=== PATIENT | female | born 1955 | race Caucasian/White ===

== ENCOUNTER 2017-10-26 20:50 | Emergency (ER) | payer BC ==
[2017-10-26] MEDS ORDERED: Acetaminophen 500 MG TAB ONE (20:58)
[2017-10-26 22:15] LABS: #Eosinphils 0.1 thou/uL (0.0-0.7); #Lymphocytes 0.6 thou/uL (1.20-3.40); #Neutrophils 10.2 thou/uL (1.40-6.50); %Basophils 0.3 % (0.0-1.0); %Eosinophils 0.5 % (0.0-10.0); %Lymphocytes 4.8 % (21.0-51.0); %Monocytes 8.8 % (0.0-10.0); %Neutrophils 85.7 % (42.0-75.0); Hemoglobin 14.4 g/dL (12.0-16.0); Mean Corpuscular HGB CONC 33.6 g/dL (32.0-36.0); Mean Corpuscular Hemoglobin 32.6 pg (27.0-31.0); Mean Corpuscular Volume 96.9 fl (81.0-99.0); Mean Platelet Volume 6.4 fL (7.4-10.4); Platelet Count 333 thou/uL (130-400); RBC Distribution Width 11.6 % (11.5-14.5); Red Blood Cell (RBC) Count 4.42 mill/uL (4.20-5.40); White Blood Cell (WBC) Count 11.9 thou/uL (4.8-10.8)
--- NOTE | 2017-10-26 22:29 | RAD ---
PA AND LATERAL OF THE CHEST: INDICATIONS: Flu symptoms with cough. COMPARISON: Prior exam dated 07/28/2009. IMPRESSION: No focal consolidation. COMMENTS: No air space consolidation or pleural effusion is evident. The cardiomediastinal silhouette is withi n normal limits. No acute osseous abnormality is evident. POS: MARIO
[2017-10-26 22:52] LABS: ALT (SGPT) 16 U/L (8-55); AST (SGOT) 18 U/L (5-34); Albumin 4.6 g/dL (3.4-4.8); Alkaline Phosphatase 78 U/L (40-150); Anion Gap 14 mmol/L (10-20); BUN (Urea Nitrogen) 7 mg/dL (9.8-20.1); Bilirubin, Total 0.6 mg/dL (0.2-1.2); Calc. Creatinine Clearance 0 mL/min (70-130); Calcium 9.8 mg/dL (7.8-10.44); Carbon Dioxide 23 mmol/L (23-31); Chloride 99 mmol/L (98-107); Estimated GFR-MDRD 73; Globulin 2.8 g/dL (2.4-3.5); Glucose 120 mg/dL (80-115); Potassium 3.8 mmol/L (3.5-5.1); Protein, Total 7.4 g/dL (6.0-8.3); Sodium 132 mmol/L (136-145)
[2017-10-26] MEDS ORDERED: predniSONE 20 MG TAB ONE (23:03)
[2017-10-26] MEDS ORDERED: Albuterol Sulfate 1.25 MG/3 ML NEB ONE (23:52)
== END 2017-10-27 00:32 | disposition home or self-care (01) ==
LOC: ERS 20:50
DX: J40 Bronchitis, not specified as acute or chronic (principal); I10 Essential (primary) hypertension; J44.9 Chronic obstructive pulmonary disease, unspecified; F41.9 Anxiety disorder, unspecified; F32.9 Major depressive disorder, single episode, unspecified; F17.220 Nicotine dependence, chewing tobacco, uncomplicated; I49.9 Cardiac arrhythmia, unspecified
CPT/HCPCS: 36415; 71020; 80053; 83605; 85025; 87040; 94640; J7506; J7620

== ENCOUNTER 2017-10-29 09:54 | Emergency (ER) | payer BC ==
--- NOTE | 2017-10-29 10:58 | RAD ---
TWO VIEW CHEST: Comparison: 10-26-17 Clinical history: Fever. FINDINGS: Lungs are hyperinflated. There is mild hazy density at each lung base. Cardiac silhouette is at the u pper limits of normal in size. No significant vascular congestion. There is vascular calcification. IMPRESSION: 1. Mild hazy densities with slight blunting of the costophrenic sulci may relate to small volume pleu ral effusions versus pleural thickening. 2. COPD. POS: H
[2017-10-29] MEDS ORDERED: methylPREDNISolone Sod Succ/PF 125 MG/2 ML VIAL ONE (11:02)
[2017-10-29] MEDS ORDERED: Water For Inject, Bacteriostat 30 ML ONE (11:02)
[2017-10-29 11:15] LABS: #Lymphocytes 1.5 thou/uL (1.20-3.40); #Monocytes 0.9 thou/uL (0.11-0.59); #Neutrophils 5.7 thou/uL (1.40-6.50); %Basophils 0.2 % (0.0-1.0); %Eosinophils 0.3 % (0.0-10.0); %Lymphocytes 18.7 % (21.0-51.0); %Monocytes 10.6 % (0.0-10.0); %Neutrophils 70.1 % (42.0-75.0); Hemoglobin 13.8 g/dL (12.0-16.0); Mean Corpuscular Hemoglobin 33.4 pg (27.0-31.0); Mean Corpuscular Volume 98.3 fl (81.0-99.0); Mean Platelet Volume 6.7 fL (7.4-10.4); Platelet Count 356 thou/uL (130-400); RBC Distribution Width 11.8 % (11.5-14.5); Red Blood Cell (RBC) Count 4.14 mill/uL (4.20-5.40); White Blood Cell (WBC) Count 8.1 thou/uL (4.8-10.8)
[2017-10-29 11:33] LABS: ALT (SGPT) 23 U/L (8-55); AST (SGOT) 27 U/L (5-34); Albumin 4.4 g/dL (3.4-4.8); Alkaline Phosphatase 60 U/L (40-150); Anion Gap 12 mmol/L (10-20); BUN (Urea Nitrogen) 11 mg/dL (9.8-20.1); Bilirubin, Total 0.3 mg/dL (0.2-1.2); Calc. Creatinine Clearance 0 mL/min (70-130); Calcium 9.6 mg/dL (7.8-10.44); Carbon Dioxide 30 mmol/L (23-31); Chloride 101 mmol/L (98-107); Estimated GFR-MDRD 79; Globulin 2.7 g/dL (2.4-3.5); Glucose 85 mg/dL (80-115); Potassium 3.4 mmol/L (3.5-5.1); Protein, Total 7.1 g/dL (6.0-8.3); Sodium 140 mmol/L (136-145)
[2017-10-29] MEDS ORDERED: Acetaminophen 500 MG TAB ONE (12:54)
== END 2017-10-29 12:59 | disposition home or self-care (01) ==
LOC: ERS 09:54
DX: J11.1 Influenza due to unidentified influenza virus with other respiratory manifestations (principal); F41.9 Anxiety disorder, unspecified; F32.9 Major depressive disorder, single episode, unspecified; J44.9 Chronic obstructive pulmonary disease, unspecified; F17.220 Nicotine dependence, chewing tobacco, uncomplicated; Z79.899 Other long term (current) drug therapy
CPT/HCPCS: 71046; 80053; 83605; 85025; 87804; 94640; 94760; 96365; 96375; J1956; J2930; J7620

== ENCOUNTER 2018-10-22 12:22 | Observation (INO) | payer BC ==
[2018-10-22 13:10] LABS: Hemoglobin 15.6 g/dL (12.0-16.0); Mean Corpuscular HGB CONC 33.3 g/dL (32.0-36.0); Mean Platelet Volume 6.4 fL (7.4-10.4); Platelet Count 495 thou/uL (130-400); RBC Distribution Width 11.1 % (11.5-14.5); Red Blood Cell (RBC) Count 4.88 mill/uL (4.20-5.40); White Blood Cell (WBC) Count 20.5 thou/uL (4.8-10.8)
[2018-10-22] MEDS ORDERED: Ondansetron PF 4 MG/2 ML Vial ONE (13:11)
[2018-10-22] MEDS ORDERED: Morphine 4 MG/ML VIAL ONE (13:12)
[2018-10-22 13:26] LABS: Band 8 % (5-11); Eosinophils 1 % (0-10); Lymphocytes 1 % (21-51); MDiff Complete? YES; Metamyelocyte 1 % (0-0); Monocytes 6 % (0-10); Neutrophil 82 % (42-75); PLT Morphology Comment Appears Increased; RBC Morphology Normal; Reactive Lymphocytes 1 % (0-10)
[2018-10-22 13:31] LABS: ALT (SGPT) 18 U/L (8-55); AST (SGOT) 17 U/L (5-34); Albumin 4.4 g/dL (3.4-4.8); Alkaline Phosphatase 78 U/L (40-150); Anion Gap 14 mmol/L (10-20); BUN (Urea Nitrogen) 6 mg/dL (9.8-20.1); Bilirubin, Total 0.3 mg/dL (0.2-1.2); Calc. Creatinine Clearance 0 mL/min (70-130); Calcium 9.5 mg/dL (7.8-10.44); Carbon Dioxide 28 mmol/L (23-31); Chloride 100 mmol/L (98-107); Estimated GFR-MDRD 77; Glucose 100 mg/dL (80-115); Lipase 30 U/L (8-78); Potassium 3.9 mmol/L (3.5-5.1); Protein, Total 7.4 g/dL (6.0-8.3); Sodium 138 mmol/L (136-145)
[2018-10-22 13:36] LABS: Bilirubin Negative (Negative); Blood, Urine Negative (Negative); Clarity CLEAR (Clear); Glucose, Urine (Dipstick) Negative (Negative); Leukocyte Negative (Negative); Nitrite Negative (Negative); Protein, Urine (Dipstick) Negative (Neg-Trace); Specific Gravity, Urine 1.016 (1.002-1.036); Urobilinogen 0.2 mg/dL (0.2-1.0)
--- NOTE | 2018-10-22 13:36 | RAD ---
CHEST 1 VIEW: Date: 10/22/18 HISTORY: Cough. COMPARISON: Chest radiograph from 2015. FINDINGS: Lungs are clear. No pneumothorax or effusion. Cardiac silhouette and mediastinal contours are within normal limits. IMPRESSION: No acute intrathoracic abnormality. POS: [facility]
--- NOTE | 2018-10-22 15:04 | CT ---
CT ABDOMEN AND PELVIS WITH CONTRAST: Date: 10/22/18 HISTORY: Left lower quadrant and left flank pain. COMPARISON: None. FINDINGS: The lung bases are clear. No pericardial effusion. There is extensive submucosal edema and pericolonic inflammation of the descending colon. There are a bnormal left colonic lymph nodes. There are a few diverticula of the colon, although the submucosal e souleymane is circumferential. Mid hyperemia of the left colonic vessels. No evidence of a macroperforation. No free intraperitoneal gastric fluid. There is thickening and flu id along the left paracolic gutter. The aortoiliac system is normal. The kidneys are without hydronephrosis. Small retroperitoneal periao rtic lymph nodes are present. The distal common bile duct at the pancreatic head measures approximately 6.0 mm. No intrahepatic perry iary dilatation. Skeleton is unremarkable for acute process. IMPRESSION: Circumferential submucosal edema, as well as pericolonic inflammation of the descending colon, sugges ting focal colitis, which may be infectious or inflammatory. There is hyperemia of the left colonic v essels; therefore, ischemic is felt much less likely. Given the patient's age, follow-up colonoscopy is recommended. POS: MELECIO
[2018-10-22] MEDS ORDERED: metroNIDAZOLE 500 MG/100 ML BAG ONE (15:52)
[2018-10-22] MEDS ORDERED: ISOVUE-370 76%-LOCM 1 ML ONE (17:00)
[2018-10-22] MEDS ORDERED: Ondansetron ODT 4 MG TAB SL PRN (17:36)
[2018-10-22] MEDS ORDERED: Ondansetron PF 4 MG/2 ML Vial IVP PRN (17:36)
[2018-10-22] MEDS ORDERED: HYDROcodone/Acetaminophen 5/325 mg Tablet PO PRN ×2 (17:36)
[2018-10-22 17:41] VITALS: BMI 28.5
[2018-10-22] MEDS: Lisinopril 20 MG TAB PO SCH (21:12)
[2018-10-22] MEDS ORDERED: metroNIDAZOLE 500 MG in Premix Bag 1 BAG IVPB SCH (22:00)
[2018-10-22] MEDS ORDERED: Sodium Chloride 0.9% 1,000 ML IV SCH (22:15)
[2018-10-22] MEDS: Acetaminophen 325 MG TAB PO PRN (22:17)
[2018-10-23] MEDS: Acetaminophen 325 MG TAB PO PRN (03:45)
--- NOTE | 2018-10-23 04:12 | HP ---
PRIMARY CARE PHYSICIAN: Jackie Greco MD CHIEF COMPLAINT: Left-sided abdominal pain. HISTORY OF PRESENT ILLNESS: Ms. Arriaga is a pleasant 63-year-old female, who had presented to [facility] with complaints of left-sided abdominal pain that started earlier this morning. She states the pain came on suddenly and was roughly 6/10 crampy pain. She states she had noticed this pain on and off over the last 3 to 4 days, but it started to get worse this morning. She also reports some loosening over stool, however, denies diarrhea. She had denied nausea, vomiting, dysuria, hematuria, fever, or chills. However, during my visit, she had got nauseous and throwing up x1. Down in the ER, she had received 2 L of normal saline, IV morphine, IV ciprofloxacin and metronidazole, and Zofran. She reports a history of COPD and hypertension, she states she is fairly healthy. She states she follows up with Dr. Palacio for her COPD, which she takes albuterol and DuoNeb treatments as needed for any shortness of breath or wheezing. She had denied any chest pain or shortness of breath. She also reported on and off over the last several months. However, she was not able to give me the exact time that she had on and off bouts of constipation and diarrhea. She had stated that her PCP, Dr. Greco, had thought that she had IBS and had recommended a GI followup. However, the patient did not seek GI evaluation during this time. She states she would have days that she did not notice symptoms at all and others that she had worsening symptoms. She states this is the first time that she had this left-sided pain. She states this pain waxes and wanes, however, is currently improved status post IV morphine. She was transferred up to the floor for observation. REVIEW OF SYSTEMS: Positive for left-sided abdominal pain and nausea. All other systems are reviewed and are negative unless mentioned in the HPI. PAST MEDICAL HISTORY: COPD and hypertension. PAST SURGICAL HISTORY: Bilateral cataract surgery, ovarian cyst removal, appendectomy, hysterectomy, and tonsillectomy. PSYCHIATRIC HISTORY: Does report some anxiety and depression, that are stable at this time. SOCIAL HISTORY: Denies alcohol use or illicit drug use, however, does report chewing tobacco about 8 pouches per day. KNOWN ALLERGIES: No known drug allergies. CURRENT HOME MEDICATIONS: 1. Lisinopril 30 mg p.o. b.i.d. 2. Ipratropium/albuterol 3 mL nebulizer q.4 hours as needed for shortness of breath. PHYSICAL EXAMINATION: VITAL SIGNS: BP 159/88, pulse 90, respirations 16, temp 99.8 degrees Fahrenheit, O2 saturations 95% on room air. GENERAL: The patient is alert and oriented x3. Mild acute distress due to left-sided abdominal pain. HEENT: Atraumatic, normocephalic. Pupils round and reactive to light. Extraocular muscles intact. Oropharynx is clear without erythema or exudates. Moist mucous membranes noted. Poor oral hygiene. NECK: Supple. No bruit. No JVD. No tenderness. CARDIOVASCULAR: Positive S1 and S2. Regular rate and rhythm. No murmur noted. RESPIRATORY: Clear to auscultation bilaterally. No wheezes. No rhonchi. ABDOMEN: Soft. Mild tenderness, diffuse over left side. Bowel sounds present. No masses. No guarding. No rigidity. No rebound. BACK: No tenderness. No CVA tenderness. Normal range of motion. MUSCULOSKELETAL: Strength 5+ bilaterally in upper and lower extremities. Moves all extremities equal. No edema noted. No calf tenderness. NEUROLOGIC: Cranial nerves 2 through 12 intact. No focal deficits noted. Speech is normal and intact. SKIN: Warm, dry, and intact. No lesions. No rashes noted. PSYCHIATRIC: Good mood and affect. No suicidal or homicidal ideation. LABORATORY DATA: WBC 20.5, RBC 4.80, hemoglobin 15.6, platelet 495. Sodium 138, potassium 3.9, BUN 6, creatinine 0.76, estimated GFR 77, glucose 100, AST 17, ALT 18, lipase 30. Urinalysis is unremarkable. No signs of UTI. DIAGNOSTIC IMAGING: Chest x-ray showed no acute intrathoracic abnormalities, lungs are clear. CT abdomen and pelvis displayed circumferential submucosal edema, as well as pericolonic inflammation of the descending colon suggesting focal colitis which may be infectious or inflammatory. There is hyperemia of the left colonic vessels. Therefore, ischemic is felt much less likely. Given the patient's age, followup colonoscopy is recommended. ASSESSMENT AND PLAN: 1. Acute colitis, continue on IV Cipro and metronidazole at this time. Place on a full liquid diet and advance as tolerated. Continue with pain regimen including [place] 5 mg as needed for pain, continue with Zofran as needed for nausea. Place on IV fluid hydration with normal saline. Consult will be called for gastrointestinal services in the a.m. 2. Hypertension. Continue the patient's home regimen with lisinopril, monitor vital signs closely and further management as needed. 3. History of chronic obstructive pulmonary disease, currently asymptomatic at this time, remain on home regimen with DuoNeb as needed. 4. Deep venous thrombosis prophylaxis with SCDs. 5. Gastrointestinal prophylaxis with Protonix, Zofran as needed for nausea. 6. Code status, full code. 7. Disposition, pending patient progress and clinical findings. Job ID: [id number]
[2018-10-23 07:53] LABS: #Basophils 0.1 thou/uL (0.0-0.2); #Eosinphils 0.2 thou/uL (0.0-0.7); #Monocytes 1.6 thou/uL (0.11-0.59); #Neutrophils 15.1 thou/uL (1.40-6.50); %Basophils 0.3 % (0.0-1.0); %Eosinophils 0.9 % (0.0-10.0); %Lymphocytes 10.3 % (21.0-51.0); %Monocytes 8.3 % (0.0-10.0); %Neutrophils 80.2 % (42.0-75.0); Hemoglobin 13.2 g/dL (12.0-16.0); Mean Corpuscular HGB CONC 33.7 g/dL (32.0-36.0); Mean Corpuscular Hemoglobin 32.7 pg (27.0-31.0); Mean Corpuscular Volume 96.9 fL (78.0-98.0); Mean Platelet Volume 6.2 fL (7.4-10.4); Platelet Count 442 thou/uL (130-400); RBC Distribution Width 11.1 % (11.5-14.5); Red Blood Cell (RBC) Count 4.04 mill/uL (4.20-5.40); White Blood Cell (WBC) Count 18.8 thou/uL (4.8-10.8)
[2018-10-23 08:24] LABS: Anion Gap 11 mmol/L (10-20); BUN (Urea Nitrogen) 6 mg/dL (9.8-20.1); Calc. Creatinine Clearance 98 mL/min (70-130); Calcium 9.2 mg/dL (7.8-10.44); Carbon Dioxide 31 mmol/L (23-31); Chloride 100 mmol/L (98-107); Estimated GFR-MDRD 83; Glucose 93 mg/dL (80-115); Potassium 3.7 mmol/L (3.5-5.1); Sodium 138 mmol/L (136-145)
[2018-10-23] MEDS ORDERED: Pantoprazole 40 MG VIAL IVP SCH (09:00)
[2018-10-23] MEDS: Lisinopril 20 MG TAB PO SCH (09:07)
--- NOTE | 2018-10-23 10:04 | DIS ---
DATE OF ADMISSION: 10/22/2018 DATE OF DISCHARGE: 10/23/2018 PRIMARY CARE PHYSICIAN: Jackie Greco MD DISCHARGE DIAGNOSES: 1. Acute colitis. 2. Essential hypertension. 3. Chronic obstructive pulmonary disease without acute exacerbation. CONSULTATIONS: None. PROCEDURES: None. HISTORY OF PRESENT ILLNESS: Ms. Arriaga is a 63-year-old female presented to the emergency department on day of admission with left-sided abdominal pain, graded 6/10 with some soft bowel movements, the big one of about 3 to 4 days. She denied fevers or chills, but did have nausea and vomiting in the ER x1. She received 2 L of saline. We were called for admission. HOSPITAL COURSE: The patient was examined by JOSE ARMANDO Pereira and placed on observation. She was started on Cipro and Flagyl overnight. This morning, she is feeling a lot better. She is able to eat and tolerate and kept food down through lunch time. Her white blood cell count improved to 20,000 and 18,000. She was stable for discharge with outpatient followup. PHYSICAL EXAMINATION: The patient was seen and examined on the day of discharge. Discharge plan and disposition discussed with the patient. The patient at the bedside. DISCHARGE MEDICATIONS: New medications; 1. Cipro 500 mg p.o. b.i.d. for 10 days. 2. Metronidazole 500 mg p.o. t.i.d. for 10 days. Home med to continue; 1. DuoNeb 3 mL q.4 hours p.r.n. 2. Lisinopril 30 mg p.o. b.i.d. FOLLOWUP APPOINTMENTS: 1. Primary care physician within a week. 2. Dr. Palacio for COPD as previously scheduled. DISCHARGE ACTIVITY: As tolerated. DISCHARGE DIET: Heart healthy diet recommended. DISCHARGE CONDITION: Stable. DISPOSITION: Discharged home via private vehicle. Job ID: [id number]
[2018-10-23 11:36] VITALS: BP 151/88; TEMP 98.5
== END 2018-10-23 12:46 | disposition home or self-care (01) ==
LOC: ERS 12:22 → 2SW 17:38
PROVIDERS: ADMIT Internal Medicine; ATTEND Internal Medicine
DX: K52.9 Noninfective gastroenteritis and colitis, unspecified (principal); J44.9 Chronic obstructive pulmonary disease, unspecified; I10 Essential (primary) hypertension; F17.220 Nicotine dependence, chewing tobacco, uncomplicated; F41.9 Anxiety disorder, unspecified; F32.9 Major depressive disorder, single episode, unspecified; Z79.899 Other long term (current) drug therapy
CPT/HCPCS: 36415; 71045; 74177; 80048; 80053; 81003; 83690; 85025; 94640; 96361; 96365; 96366; 96375; 96376; C9113; G0378; J0744; J2270; J2405; J7620

== ENCOUNTER 2018-11-04 11:24 | Day surgery (SDC) | payer BC ==
[2018-11-03 11:19] VITALS: BMI 29.3
--- NOTE | 2018-11-04 03:32 | HP ---
HISTORY OF PRESENT ILLNESS: This is a 63-year-old female with abdominal pain with CAT scan showing thickening of the colon indicative of colitis. The patient was hospitalized recently with abdominal pain which was very severe in nature. she was seen in the ER and was sent for a CAT scan. The CAT scan showed thickening of left colon indicative of colitis. She has been treated with antibiotics. Her symptoms are much better today. The patient comes in for a colonoscopy for colon cancer screening because of family history of colon cancer. SOCIAL HISTORY: The patient is a former smoker. She chews tobacco at the present time. ALLERGIES: NONE. MEDICAL ILLNESSES: 1. COPD. 2. Hypertension. 3. Allergic rhinitis. 4. Depression. 5. Anxiety. 6. Chronic acid reflux. 7. Fatty liver. PHYSICAL EXAMINATION: VITAL SIGNS: Pulse is 70, blood pressure 130/80. HEENT: Conjunctivae clear. CARDIOVASCULAR SYSTEM: First and second heart sounds heard. LUNGS: Clear to auscultation. ABDOMEN: Soft. Abdomen is nontender. There is no organomegaly or masses. ADMITTING DIAGNOSIS: A 63-year-old female with family history of colon cancer. The patient comes in for colonoscopy for colon cancer screening. Job ID: [id number] MTDD
[2018-11-04] MEDS ORDERED: PROPOFOL 200 MG/20 ML VIAL ONE (14:53)
--- NOTE | 2018-11-04 22:01 | OP ---
DATE OF PROCEDURE: 11/04/2018 PROCEDURE PERFORMED: Colonoscopy with polypectomy with biopsy forceps. PREOPERATIVE DIAGNOSIS: A 63-year-old female with family history of colon cancer. The patient comes for a colonoscopy for colon cancer screening. POSTOPERATIVE DIAGNOSES: 1. Sessile polyp, transverse colon. 2. Sessile polyp, lower sigmoid colon. 3. Large hemorrhoids. 4. Scattered diverticula predominantly in the left colon, but occasionally diverticula seen on the right colon. DESCRIPTION OF PROCEDURE: The patient was placed on her left lateral position and was given sedation by Anesthesia Department. A rectal exam was done before the scope was advanced into the rectum. The patient had a very large external hemorrhoids. No other lesions felt. A Pentax video colonoscope was introduced into the rectum and advanced all the way to the cecum. The prep was excellent. The mucosa appears normal throughout the colon with normal vascular pattern. There is no colitis or any inflammation seen. The appendicular opening, ileocecal wall, and cecum; no pathology. The patient had occasional diverticula over the right colon area. The hepatic flexure and transverse colon showed no pathology except for a sessile polyp. This was removed easily with biopsy forceps. The splenic flexure and descending colon, no pathology. The sigmoid colon with scattered diverticular disease. A small sessile polyp removed with biopsy forceps.She also had hemorrhoids. DISCHARGE PLANNING: This is a 63-year-old female with family history of colon cancer. She came for a colonoscopy for colon cancer screening. She underwent colonoscopy with polypectomy x3. DISCHARGE RECOMMENDATIONS: 1. The patient was advised to call me if she develops abdominal pain, hematochezia. 2. In the absence of any other symptoms, she will come back to me in two weeks. Plan to repeat colonoscopy in 5 years. Job ID: [id number] [facility]
== END 2018-11-04 15:25 | disposition home or self-care (01) ==
LOC: SDC 11:24
PROVIDERS: ATTEND Internal Medicine Gastroenterology
PROC: 0DBN8ZX Excision of Sigmoid Colon, Via Natural or Artificial Opening Endoscopic, Diagnostic (ICD-10-PCS; principal; 2018-11-04)
PROC: 0DBL8ZX Excision of Transverse Colon, Via Natural or Artificial Opening Endoscopic, Diagnostic (ICD-10-PCS; principal; 2018-11-04)
DX: Z12.11 Encounter for screening for malignant neoplasm of colon (principal); D12.3 Benign neoplasm of transverse colon; K63.5 Polyp of colon; K57.30 Diverticulosis of large intestine without perforation or abscess without bleeding; K64.9 Unspecified hemorrhoids; F17.220 Nicotine dependence, chewing tobacco, uncomplicated; J44.9 Chronic obstructive pulmonary disease, unspecified; I10 Essential (primary) hypertension; F32.9 Major depressive disorder, single episode, unspecified; F41.9 Anxiety disorder, unspecified; K21.9 Gastro-esophageal reflux disease without esophagitis; Z80.0 Family history of malignant neoplasm of digestive organs; Z79.899 Other long term (current) drug therapy
CPT/HCPCS: 88305; J2704

== ENCOUNTER 2020-11-19 15:09 | Inpatient (IN) | payer BC ==
[2020-11-19 15:56] LABS: Hemoglobin 14.4 g/dL (12.0-16.0); Mean Corpuscular HGB CONC 33.5 g/dL (32.0-36.0); Mean Corpuscular Hemoglobin 31.6 pg (27.0-31.0); Mean Corpuscular Volume 94.4 fL (78.0-98.0); Mean Platelet Volume 6.6 fL (7.4-10.4); Platelet Count 411 thou/uL (130-400); RBC Distribution Width 11.2 % (11.5-14.5); Red Blood Cell (RBC) Count 4.54 mill/uL (4.20-5.40); White Blood Cell (WBC) Count 11.8 thou/uL (4.8-10.8)
[2020-11-19] MEDS ORDERED: Morphine 4 MG/ML VIAL ONE (16:05)
[2020-11-19] MEDS ORDERED: Ondansetron PF 4 MG/2 ML Vial ONE (16:05)
[2020-11-19] MEDS ORDERED: Nitroglycerin 2% Ointment 1 INCH/1 GM Packet ONE (16:05)
[2020-11-19] MEDS ORDERED: Aspirin Chewable 81 MG TAB ONE (16:05)
--- NOTE | 2020-11-19 16:06 | RAD ---
PORTABLE CHEST: Date: 11-19-2020 PROVIDED CLINICAL HISTORY: Chest pain FINDINGS: Comparison 10-29-17. Cardiac and mediastinal silhouette is within normal limits. Vascular calcifications noted involving t he aortic arch. No focal consolidation, pleural fluid, or pneumothorax apparent. IMPRESSION: No evidence for an acute cardiopulmonary process. POS: ALEXANDREA
[2020-11-19 16:18] LABS: ALT (SGPT) 29 U/L (8-55); AST (SGOT) 24 U/L (5-34); Albumin 4.3 g/dL (3.4-4.8); Alkaline Phosphatase 72 U/L (40-110); Anion Gap 12 mmol/L (10-20); BUN (Urea Nitrogen) 6 mg/dL (9.8-20.1); Bilirubin, Total 0.5 mg/dL (0.2-1.2); Calc. Creatinine Clearance 0 mL/min (70-130); Calcium 9.1 mg/dL (7.8-10.44); Carbon Dioxide 26 mmol/L (23-31); Chloride 95 mmol/L (98-107); Globulin 2.8 g/dL (2.4-3.5); Glucose 106 mg/dL (80-115); Potassium 4.1 mmol/L (3.5-5.1); Protein, Total 7.1 g/dL (5.8-8.1); Sodium 129 mmol/L (136-145)
[2020-11-19 16:19] LABS: Band 1 % (5-11); Eosinophils 2 % (0-10); Lymphocytes 14 % (21-51); MDiff Complete? YES; Monocytes 4 % (0-10); Neutrophil 79 % (42-75); Platelet Morphology Comment Appears Increased; RBC Morphology Normal
--- NOTE | 2020-11-19 17:27 | PDOC.HHP ---
Hospitalist HPI - History of Present Illness Chest pain History of Present Illness: Ms. Arriaga is a 65F with a PMHx of COPD not on home O2, hypertension, 30-year pack history quit over 10 years ago who presents emergency room for chest pain. Patient reports that her pain started proximately 3 days ago is in her right upper chest and radiates to her back and shoulder. Pain is constant with intermittent episodes of increasing intensity. She also endorses mild nausea with the pain. She denies shortness of breath and states that it feels different than her COPD exacerbation pain. Denies abdominal pain nausea vomiting diarrhea. No melena, hematochezia or hematemesis. In emergency room initial vital signs 182/101, 88, 18, 98% on room air, 98.7. Initial troponin 0 0.011. EKG showed normal sinus rhythm with inferior Q waves. No ST changes. Lipase 42, D-dimer less than 0.27. BUN/CR 6/0.74, sodium 129, potassium 4.1. H/H 14.4/42.9, WBC 11.8. Patient received aspirin, Nitropaste, 1 L of normal saline and Zofran in emergency room. Hospitalist ROS - Review of Systems Constitutional: denies: fever, chills, sweats, weakness, malaise, other Eyes: denies: pain, vision change, conjunctivae inflammation, eyelid inflammation, redness, other ENT: denies: ear pain, ear discharge, nose pain, nose discharge, nose congestion, mouth pain, mouth swelling, throat pain, throat swelling, other Respiratory: denies: cough, dry, shortness of breath, hemoptysis, SOB with excertion, pleuritic pain, sputum, wheezing, other Cardiovascular: reports: chest pain. denies: palpitations, orthopnea, paroxysmal noc. dyspnea, edema, light headedness, other Gastrointestinal: reports: nausea. denies: vomiting, abdominal pain, diarrhea, constipation, melena, hematochezia, other Genitourinary: denies: dysuria, frequency, incontinence, hematuria, retention, other Musculoskeletal: denies: neck pain, shoulder pain, arm pain, back pain, hand pain, leg pain, foot pain, other Skin: denies: rash, lesions, amberly, bruising, other Neurological: denies: weakness, numbness, incoordination, change in speech, confusion, seizures, other - Medication Medications: Home medications include lisinopril albuterol duo nebs No known drug allergies Hospitalist History - Past Surgical History Other Surgical History: Surgical history includes Cataracts Bilateral ovarian cyst removals Appendectomy Hysterectomy Tonsillectomy - Family History Other Family History: Patient denies family history of cardiac disease - Social History Smoking Status: Former smoker Alcohol: reports: None (30-year pack history) Drugs: reports: none Living Situation: With Family Activity level: independent ambulation - Exam General Appearance: NAD, awake alert Eye: PERRL, anicteric sclera ENT: normocephalic atraumatic, no oropharyngeal lesions, moist mucosa Neck: supple, symmetric, no JVD, no thyromegaly, no lymphadenopathy, no carotid bruit Heart: RRR, no murmur, no gallops, no rubs, normal peripheral pulses Respiratory: no wheezes, no rales, normal chest expansion, no tachypnea Respiratory - other findings: Diminished sounds at bilateral bases Gastrointestinal: soft, non-tender, non-distended, normal bowel sounds, no palpable masses, no hepatomegaly, no splenomegaly, no bruit Extremities: no cyanosis, no clubbing, no edema Skin: normal turgor, no lesions, no rashes Neurological: cranial nerve grossly intact, normal sensation to touch, no weakness, no focal deficits, no new deficit Musculoskeletal: normal tone, normal strength, no muscle wasting Psychiatric: normal affect, normal behavior, A&O x 3 Hospitalist Results - Labs Result Diagrams: 11/19/20 15:36 11/19/20 15:36 Lab results: WBC 11.8 thou/uL (4.8-10.8) H 11/19/20 15:36 Hgb 14.4 g/dL (12.0-16.0) 11/19/20 15:36 Hct 42.9 % (36.0-47.0) 11/19/20 15:36 MCV 94.4 fL (78.0-98.0) 11/19/20 15:36 Plt Count 411 thou/uL (130-400) H 11/19/20 15:36 Band Neuts % (Manual) 1 % (5-11) L 11/19/20 15:36 Sodium 129 mmol/L (136-145) L 11/19/20 15:36 Potassium 4.1 mmol/L (3.5-5.1) 11/19/20 15:36 Chloride 95 mmol/L (98-107) L 11/19/20 15:36 Carbon Dioxide 26 mmol/L (23-31) 11/19/20 15:36 BUN 6 mg/dL (9.8-20.1) L 11/19/20 15:36 Creatinine 0.74 mg/dL (0.6-1.1) 11/19/20 15:36 Glucose 106 mg/dL (80-115) 11/19/20 15:36 Calcium 9.1 mg/dL (7.8-10.44) 11/19/20 15:36 Total Bilirubin 0.5 mg/dL (0.2-1.2) 11/19/20 15:36 AST 24 U/L (5-34) 11/19/20 15:36 ALT 29 U/L (8-55) 11/19/20 15:36 Alkaline Phosphatase 72 U/L (40-110) 11/19/20 15:36 Troponin I 0.011 ng/mL (< 0.028) 11/19/20 15:36 Serum Total Protein 7.1 g/dL (5.8-8.1) 11/19/20 15:36 Albumin 4.3 g/dL (3.4-4.8) 11/19/20 15:36 Lipase 42 U/L (8-78) 11/19/20 15:36 Hospitalist H&P A/P - Plan Plan: Chest pain 66 family history of hypertension, COPD, 30-year pack history who presents with chest pain. Pain radiates to her right shoulder is constant with periods of intermittent increasing in intensity and associated with nausea. Patient hypertensive with stable respiratory rate and 98% on room air. Initial troponin 0 0.011. EKG showed normal sinus rhythm with Q waves in inferior leads. WBC 11.8, H&H stable. D-dimer negative. Patient received aspirin, Nitropaste in emergency room. Will admit for chest pain rule out trend troponins and perform stress test if troponins remain low. Plan Trend troponin ASA, Nitropaste Telemetry monitoring N.p.o. at midnight Stress test in a.m. if troponins remain low COPD History of COPD not on home O2. Patient reports use of multiple duo nebs per day and is unable to afford inhalers. She follows with Dr. Piedra. Will make duo nebs available to patient as needed Plan Supplemental oxygen as needed DuoNebs as needed Hypertensive urgency Patient extremely hypertensive in emergency room to 182/101. Takes home lisinopril. Will give as needed meds to slowly bring down the blood pressure. Hyponatremia Sodium 129 on admission. Patient appears dry on exam. Will obtain serum osmolality urine osmolality and urine electrolytes. Trend sodium DVT prophylaxisLovenox Full code Case discussed with attending physician, Dr. Wooten.
[2020-11-19] MEDS ORDERED: Acetaminophen 650 MG Suppository PR PRN (17:37)
[2020-11-19 17:41] LABS: SARS-CoV-2 NAA Rapid Test Not Detected (NotDetected)
[2020-11-19] MEDS ORDERED: Aspirin 325 MG TAB PO SCH (17:45)
[2020-11-19] MEDS ORDERED: hydrALAZINE 20 MG/ML VIAL SLOW IVP PRN ×2 (17:46→17:47)
[2020-11-19 19:04] VITALS: BMI 29.4
[2020-11-19 19:57] LABS: Troponin I Less than 0.010 ng/mL (< 0.028)
[2020-11-19] MEDS ORDERED: Albuterol Sulfate 2.5 mg/3 ml Neb NEB PRN (20:19)
[2020-11-19] MEDS: Acetaminophen 325 MG TAB PO PRN (20:38)
[2020-11-19] MEDS ORDERED: Lisinopril 10 MG TAB PO SCH (21:00)
[2020-11-19] MEDS: Nitroglycerin 2% Ointment 1 INCH/1 GM Packet TOP SCH (22:14)
[2020-11-19 23:03] LABS: Troponin I Less than 0.010 ng/mL (< 0.028)
[2020-11-20] MEDS: Acetaminophen 325 MG TAB PO PRN (03:51)
[2020-11-20] MEDS: Nitroglycerin 2% Ointment 1 INCH/1 GM Packet TOP SCH ×3 (04:16→21:14)
[2020-11-20 05:04] LABS: Mean Corpuscular HGB CONC 33.7 g/dL (32.0-36.0); Mean Corpuscular Hemoglobin 31.9 pg (27.0-31.0); Mean Corpuscular Volume 94.6 fL (78.0-98.0); Mean Platelet Volume 6.7 fL (7.4-10.4); Platelet Count 369 thou/uL (130-400); RBC Distribution Width 11.1 % (11.5-14.5); Red Blood Cell (RBC) Count 4.09 mill/uL (4.20-5.40); White Blood Cell (WBC) Count 10.1 thou/uL (4.8-10.8)
[2020-11-20 05:05] LABS: Band 1 % (5-11); Eosinophils 5 % (0-10); Lymphocytes 18 % (21-51); MDiff Complete? YES; Monocytes 5 % (0-10); Neutrophil 70 % (42-75); Platelet Morphology Comment Appears Adequate; Reactive Lymphocytes 1 % (0-10)
[2020-11-20 05:13] LABS: Anion Gap 11 mmol/L (10-20); BUN (Urea Nitrogen) 5 mg/dL (9.8-20.1); Calc. Creatinine Clearance 93 mL/min (70-130); Calcium 8.7 mg/dL (7.8-10.44); Carbon Dioxide 28 mmol/L (23-31); Cardiac Risk 5.6 (Less than 4.5); Chloride 100 mmol/L (98-107); Cholesterol 211 mg/dl (< 200 Desired); Glucose 119 mg/dL (80-115); HDL Cholesterol 38 mg/dL (>60 Neg Risk); LDL Cholesterol, Calculated 112 mg/dL; Potassium 4.3 mmol/L (3.5-5.1); Sodium 135 mmol/L (136-145); Triglycerides 305 mg/dL (Less than 150)
[2020-11-20] MEDS ORDERED: FLU VACC QS2020-21(6MOS UP)/PF 60 MCG/0.5 ML SYRINGE IM ONE (09:00)
[2020-11-20] MEDS ORDERED: Enoxaparin Sodium 40 MG/0.4 ML SYRINGE SC SCH (09:00)
[2020-11-20] MEDS ORDERED: ALPRAZolam 0.5 MG TAB PO SCH (10:15)
[2020-11-20] MEDS ORDERED: Non-Formulary Item 1 EACH (Albuterol Sulfate [Proair Hfa] 8.5 GM Hfa.Aer.Ad) INH PRN (10:18)
--- NOTE | 2020-11-20 11:44 | NM ---
Nuclear medicine Cardiac myocardial perfusion SPECT Ejection fraction study Wall motion cine: DATE:11/20/2020 8:39 AM INDICATION: Chest pain TECHNIQUE: Number of days:2 Rest Study: Technetium 99m-sestamibi (Cardiolite) dose:9.91 mCi Stress study: Technetium 99m-sestamibi (Cardiolite) dose:33.00 mCi FINDINGS: Cardiac (myocardial perfusion) SPECT There is a large size region of moderately reduced activity involving the basal to apex inferior wall and septum that improves with rest imaging. Ejection fraction study Left ventricular EF = 68% Wall motion cine There was some mild dyskinesia involving the basal to mid inferior wall on the cine images. There is diminished wall thickening involving the inferior wall. IMPRESSION: Abnormal myocardial perfusion evaluation. 1. Large size region of moderately reduced activity involving the basal to apical inferior wall and s eptum suspicious for reversible myocardial ischemia. 2. There is diminished wall thickening involving the inferior left ventricular wall with mild dyskine felix involving the basal to mid inferior wall. 3. Estimated LVEF of 68%.
[2020-11-20] MEDS: Carvedilol 3.125 MG TAB PO SCH ×2 (11:56→18:18)
[2020-11-20] MEDS: Aspirin Chewable 81 MG TAB PO SCH (11:56)
[2020-11-20] MEDS ORDERED: Regadenoson 0.4 MG/5 ML SYRINGE ONE (12:56)
--- NOTE | 2020-11-20 14:55 | PDOC.HOSPP ---
- Subjective Encounter Date: 11/20/20 Encounter Time: 14:54 Subjective: atypical chest pain - Objective Vital Signs & Weight: Vital Signs (12 hours) Temp Pulse Resp BP Pulse Ox 11/20/20 07:54 98.1 F 82 20 137/72 93 L 11/20/20 06:51 81 16 11/20/20 04:00 98.2 F 80 18 143/69 H 92 L Weight Weight 171 lb 6 oz I&O: 11/19/20 11/20/20 11/21/20 06:59 06:59 06:59 Intake Total 480 Output Total 250 Balance 230 Result Diagrams: 11/20/20 04:18 11/20/20 04:18 Hospitalist ROS - Medication Medications: Active Medications Generic Name Dose Route Start Last Admin Trade Name Freq PRN Reason Stop Dose Admin Acetaminophen 650 mg 11/19/20 17:37 11/20/20 03:51 Acetaminophen 325 Mg Tab PO 650 mg Q4H PRN Administration Headache/Fever/Mild Pain (1-3) Albuterol/Ipratropium 3 ml 11/19/20 18:30 11/20/20 10:19 Ipratropium/Albuterol Sulfate 3 Ml Neb NEB Not Given [id number] LINA Aspirin 81 mg 11/20/20 09:00 11/20/20 11:56 Aspirin Chewable 81 Mg Tab PO 81 mg DAILY LINA Administration Carvedilol 3.125 mg 11/20/20 08:00 11/20/20 11:56 Carvedilol 3.125 Mg Tab PO 3.125 mg BID-WM LINA Administration Enoxaparin Sodium 40 mg 11/20/20 09:00 11/20/20 11:56 Enoxaparin Sodium 40 Mg/0.4 Ml Syringe SC 40 mg 0900 LINA Administration Nitroglycerin 0.5 inch 11/19/20 22:00 11/20/20 04:16 Nitroglycerin 2% Ointment 1 Inch/1 Gm Packet TOP Not Given Q8HR LINA - Exam General Appearance: awake alert Neck: no JVD Heart: RRR, no murmur Respiratory: CTAB Gastrointestinal: soft, normal bowel sounds Extremities: no edema Hosp A/P (1) Chest pain Code(s): R07.9 - CHEST PAIN, UNSPECIFIED Status: Acute Qualifiers: Chest pain type: unspecified Qualified Code(s): R07.9 - Chest pain, unspecified (2) COPD (chronic obstructive pulmonary disease) Status: Acute Qualifiers: Emphysema type: unspecified (3) HTN (hypertension) Code(s): I10 - ESSENTIAL (PRIMARY) HYPERTENSION Status: Chronic Qualifiers: Hypertension type: essential hypertension Qualified Code(s): I10 - Essential (primary) hypertension - Plan atypical chest pain with normal enzymes abnormal stress test Hx smoking cardiology consult
[2020-11-20] MEDS ORDERED: Diazepam 5 MG TAB PO SCH (18:15)
[2020-11-20] MEDS ORDERED: Communication Order-Pharmacy FS SCH (18:15)
[2020-11-20] MEDS ORDERED: Sodium Chloride 0.9% 1,000 ML IV SCH (18:15)
--- NOTE | 2020-11-20 18:55 | CON ---
DATE OF CONSULTATION: 11/20/2020 REASON FOR CONSULTATION: Abnormal stress study. HISTORY OF PRESENT ILLNESS: Ms. Arriaga is a 65-year-old woman who has not been seen and evaluated by Cardiology in the past. She does have a history of COPD. She states she felt this was a part of her COPD exacerbation. She states it did not improve with the inhalers. She also had chest tightness and radiation to her back. She presented to the emergency room with the above. She underwent a noninvasive stress study on 11/20/2020 and was found have a large area of moderately reduced activity in the basal to apical inferior wall with LVEF of 68%. This was reviewed and discussed with the patient. PAST MEDICAL HISTORY: COPD, hypertension, previous tobacco abuse, quit all tobacco products 10 years ago. CURRENT MEDICATIONS: Unknown. ALLERGIES: UNKNOWN. SURGICAL HISTORY: Cataract surgery, ovarian cyst removal, appendectomy, hysterectomy, and tonsillectomy. FAMILY HISTORY: Negative for CAD. SOCIAL HISTORY: As above. REVIEW OF SYSTEMS: A 10-point system is reviewed and is as above, otherwise negative. PHYSICAL EXAMINATION: VITAL SIGNS: Blood pressure 165/84, pulse 80, temperature 98.4. GENERAL: Patient is a pleasant woman who is in no acute distress, appears older than her stated age. NEUROLOGIC: The patient is alert and oriented x3 with no focal neurologic deficits. HEENT: Sclerae without icterus. Mouth has moist mucous membranes with normal pallor. NECK: No JVD. Carotid upstroke brisk. No bruits bilaterally. LUNGS: Clear to auscultation with unlabored respirations. BACK: No scoliosis or kyphosis. CARDIAC: Regular rate and rhythm with normal S1 and S2. No S3 or S4 noted. No significant rubs, murmurs, thrills, or gallops noted throughout the precordium. PMI is not displaced. There is no parasternal heave. ABDOMEN: Soft, nontender, nondistended. No peritoneal signs present. No hepatosplenomegaly. No abnormal striae. EXTREMITIES: 2+ femoral and 2+ dorsalis pedis pulses. No cyanosis, clubbing, or edema. SKIN: No gross abnormalities. PERTINENT LABORATORY DATA: Hemoglobin 13, hematocrit 38.7, creatinine 0.75. Troponin negative. Stress rest myocardial perfusion study as above. EKG; normal sinus rhythm, normal EKG. IMPRESSION: 1. Shortness of breath. 2. Chest tightness. 3. Chronic obstructive pulmonary disease. RECOMMENDATIONS: Ms. Arriaga's recent stress study was felt to be a high risk scan based on the amount of myocardium at risk. I would recommend urgent coronary angiography plus possible PCI. I discussed procedure in full detail with Ms. Arriaga. Risks include not limited to the following: , stroke, [place], need for emergency surgery, loss of limb, bleeding, and infection, as well as a reaction to the dye causing kidney failure and needing long-term dialysis. I also discussed the risks of PCI to include all of the above including coronary dissection and perforation in addition to acute stent thrombosis and restenosis. All questions about the procedure were answered. Given the above, the patient agreed to proceed with coronary angiography and possible PCI. All questions were answered. I also discussed drug coated versus nondrug coated stent placement. There were no contraindications to proceed if needed. Further recommendations pending the above. Job ID: [id number]
[2020-11-21] MEDS: Acetaminophen 325 MG TAB PO PRN ×3 (00:58→20:20)
[2020-11-21] MEDS: Carvedilol 3.125 MG TAB PO SCH ×2 (05:02→17:55)
[2020-11-21] MEDS: Aspirin Chewable 81 MG TAB PO SCH (05:02)
[2020-11-21] MEDS: Nitroglycerin 2% Ointment 1 INCH/1 GM Packet TOP SCH ×3 (06:04→22:25)
[2020-11-21] MEDS ORDERED: Ondansetron PF 4 MG/2 ML Vial IVP SCH (07:00)
--- NOTE | 2020-11-21 10:41 | PDOC.HOSPP ---
- Subjective Encounter Date: 11/21/20 Encounter Time: 10:39 Subjective: resting comfortably, no chest pain - Objective Vital Signs & Weight: Vital Signs (12 hours) Temp Pulse Resp BP Pulse Ox 11/21/20 07:57 74 16 96 11/21/20 07:39 98.2 F 79 19 180/79 H 98 11/21/20 05:05 77 148/70 H 11/21/20 04:00 98.3 F 74 18 175/86 H 94 L 11/21/20 02:13 72 16 11/21/20 00:00 76 Weight Weight 167 lb I&O: 11/20/20 11/21/20 11/22/20 06:59 06:59 06:59 Intake Total 480 1200 Output Total 250 Balance 230 1200 Result Diagrams: 11/20/20 04:18 11/20/20 04:18 Hospitalist ROS - Medication Medications: Active Medications Generic Name Dose Route Start Last Admin Trade Name Freq PRN Reason Stop Dose Admin Acetaminophen 650 mg 11/19/20 17:37 11/21/20 05:03 Acetaminophen 325 Mg Tab PO 650 mg Q4H PRN Administration Headache/Fever/Mild Pain (1-3) Albuterol/Ipratropium 3 ml 11/19/20 18:30 11/21/20 07:57 Ipratropium/Albuterol Sulfate 3 Ml Neb NEB 3 ml [id number] [id number] Administration Aspirin 81 mg 11/20/20 09:00 11/21/20 05:02 Aspirin Chewable 81 Mg Tab PO 81 mg DAILY LINA Administration Carvedilol 3.125 mg 11/20/20 08:00 11/21/20 05:02 Carvedilol 3.125 Mg Tab PO 3.125 mg BID-WM LINA Administration Sodium Chloride 1,000 mls @ 100 mls/hr 11/20/20 18:15 11/21/20 06:03 Normal Saline 0.9% IV 1,000 mls .Q10H LINA Administration Nitroglycerin 0.5 inch 11/19/20 22:00 11/21/20 06:04 Nitroglycerin 2% Ointment 1 Inch/1 Gm Packet TOP Not Given Q8HR [facility] Hospitalist Exam Vitals: Vital Signs (12 hours) Temp Pulse Resp BP Pulse Ox 11/21/20 07:57 74 16 96 11/21/20 07:39 98.2 F 79 19 180/79 H 98 11/21/20 05:05 77 148/70 H 11/21/20 04:00 98.3 F 74 18 175/86 H 94 L 11/21/20 02:13 72 16 11/21/20 00:00 76 Weight Weight 167 lb General Appearance: awake alert Neck: no JVD Heart: RRR, no murmur Respiratory: CTAB Gastrointestinal: soft, non-distended, normal bowel sounds Extremities: no edema Hosp A/P (1) Chest pain Code(s): R07.9 - CHEST PAIN, UNSPECIFIED Status: Acute Qualifiers: Chest pain type: unspecified Qualified Code(s): R07.9 - Chest pain, unspecified (2) COPD (chronic obstructive pulmonary disease) Status: Acute Qualifiers: Emphysema type: unspecified (3) HTN (hypertension) Code(s): I10 - ESSENTIAL (PRIMARY) HYPERTENSION Status: Chronic Qualifiers: Hypertension type: essential hypertension Qualified Code(s): I10 - Essential (primary) hypertension - Plan cardiac cath today, FU
[2020-11-21] MEDS ORDERED: Iopamidol 370 76% 50 ML VIAL FS ONE (11:53)
[2020-11-21] MEDS ORDERED: Iopamidol 370 76% 100 ML VIAL ONE (11:53)
[2020-11-21] MEDS ORDERED: Fentanyl 100 MCG/2 ML VIAL ONE ×2 (12:17→14:47)
[2020-11-21] MEDS ORDERED: Midazolam HCl 2 mg/2 ml Vial ONE (12:17)
[2020-11-21] MEDS ORDERED: Ondansetron PF 4 MG/2 ML Vial ONE (12:17)
[2020-11-21] MEDS ORDERED: Heparin 10,000 UNITS/ 10 ML VIAL ONE (13:18)
[2020-11-21] MEDS ORDERED: Clopidogrel Bisulfate 300 MG TAB ONE (13:40)
[2020-11-21] MEDS ORDERED: hydrALAZINE 20 MG/ML VIAL ONE (13:51)
[2020-11-21] MEDS ORDERED: Nitroglycerin 0.4 MG TAB (25 Tab Bottle) ONE (13:51)
[2020-11-21] MEDS ORDERED: Nitroglycerin 4.9 GM Bottle ONE (13:53)
[2020-11-21] MEDS ORDERED: Fentanyl 100 MCG/2 ML VIAL SLOW IVP SCH (17:30)
[2020-11-21] MEDS: Sodium Chloride 0.9% 1,000 ML IV SCH (17:53)
[2020-11-21] MEDS ORDERED: Lorazepam 2 MG/ML VIAL SLOW IVP PRN (19:47)
[2020-11-21] MEDS ORDERED: Lorazepam 2 MG/ML VIAL SLOW IVP SCH (20:00)
[2020-11-22 04:15] LABS: #Basophils 0.1 thou/uL (0.0-0.2); #Eosinphils 0.3 thou/uL (0.0-0.7); #Lymphocytes 1.8 thou/uL (1.20-3.40); #Monocytes 1.1 thou/uL (0.11-0.59); %Basophils 0.7 % (0.0-1.0); %Eosinophils 2.2 % (0.0-10.0); %Monocytes 8.7 % (0.0-10.0); %Neutrophils 73.4 % (42.0-75.0); Hemoglobin 13.3 g/dL (12.0-16.0); Mean Corpuscular HGB CONC 33.7 g/dL (32.0-36.0); Mean Corpuscular Hemoglobin 31.6 pg (27.0-31.0); Mean Corpuscular Volume 93.9 fL (78.0-98.0); Mean Platelet Volume 6.7 fL (7.4-10.4); Platelet Count 392 thou/uL (130-400); RBC Distribution Width 11.1 % (11.5-14.5); Red Blood Cell (RBC) Count 4.21 mill/uL (4.20-5.40); White Blood Cell (WBC) Count 12.3 thou/uL (4.8-10.8)
[2020-11-22 04:39] LABS: ALT (SGPT) 23 U/L (8-55); AST (SGOT) 35 U/L (5-34); Albumin 3.8 g/dL (3.4-4.8); Alkaline Phosphatase 59 U/L (40-110); Anion Gap 12 mmol/L (10-20); BUN (Urea Nitrogen) 7 mg/dL (9.8-20.1); Bilirubin, Total 0.6 mg/dL (0.2-1.2); Calc. Creatinine Clearance 94 mL/min (70-130); Carbon Dioxide 25 mmol/L (23-31); Chloride 100 mmol/L (98-107); Globulin 2.4 g/dL (2.4-3.5); Glucose 114 mg/dL (80-115); Potassium 3.9 mmol/L (3.5-5.1); Protein, Total 6.2 g/dL (5.8-8.1); Sodium 133 mmol/L (136-145)
[2020-11-22 04:44] LABS: Calcium 8.7 mg/dL (7.8-10.44)
[2020-11-22] MEDS: Nitroglycerin 2% Ointment 1 INCH/1 GM Packet TOP SCH (05:52)
--- NOTE | 2020-11-22 07:13 | EKG ---
Test Reason : POST ANGIOPLAST/STEN Blood Pressure : / mmHG Vent. Rate : 107 BPM Atrial Rate : 107 BPM P-R Int : 170 ms QRS Dur : 080 ms QT Int : 360 ms P-R-T Axes : 078 -19 066 degrees QTc Int : 480 ms Sinus tachycardia Right atrial enlargement Inferior infarct (cited on or before 19-NOV-2020) Cannot rule out Anterior infarct , age undetermined Abnormal ECG When compared with ECG of 19-NOV-2020 15:29, (Unconfirmed) Minimal criteria for Anterior infarct are now Present Confirmed by DR. Rhonda HEMPHILL ([id number]) on 11/22/2020 7:13:30 AM Referred By: DES Confirmed By:DR. Rhonda HEMPHILL
[2020-11-22 08:00] VITALS: TEMP 98.4
[2020-11-22] MEDS: Carvedilol 3.125 MG TAB PO SCH (08:01)
[2020-11-22] MEDS: Sodium Chloride 0.9% 1,000 ML IV SCH (08:02)
--- NOTE | 2020-11-22 08:20 | OP ---
DATE OF PROCEDURE: 11/21/2020 ADDENDUM: To procedure note dated 11/21/2020. Ms. 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 She had an occluded right coronary artery in addition to severe stenosis of an OM branch. There appeared to be chronic collaterals to the right coronary artery. She also had a 55% to 60% stenosis of mid LAD. It was decided to proceed with attempted intervention of the right coronary artery. Initially, it appeared to be successful with a Whisper wire. The wire though would not pass distally. I did place a 2.0 balloon catheter over the wire with inflation in the mid section. There appeared to be improved flow, but the balloon would not pass into the distal region. Based on the findings, I was concerned about being subintimal and decided not to proceed with any further intervention. I then proceeded with intervention to the OM branch. This was successful after pre-ballooning with a 2.0 and 2.5 balloon catheter and placing a 3.0 x 20 mm Synergy stent. There was loss of the wire after placement of the stent when removing the Mailman wire. There was excellent angiographic result and no need to proceed with rewiring and posting. Job ID: [id number]
[2020-11-22] MEDS ORDERED: Clopidogrel Bisulfate 75 MG TAB PO SCH (09:00)
[2020-11-22] MEDS ORDERED: Aspirin Chewable 81 MG TAB PO SCH (09:00)
--- NOTE | 2020-11-22 09:34 | DIS ---
DATE OF ADMISSION: 11/21/2020 DATE OF DISCHARGE: 11/22/2020 PRIMARY CARE PROVIDER: Dr. Jackie Greco. DISCHARGE MEDICATIONS: 1. Aspirin 81 mg a day. 2. Lipitor 40 mg a day. 3. Coreg 3.125 mg a day. 4. Plavix 75 mg a day. 5. Albuterol nebulizer q.2 hours p.r.n. 6. DuoNeb 3 mL nebulizer q.4 hours. 7. Albuterol HFA two puffs q.6 hours p.r.n. 8. Lisinopril 40. ALLERGIES: NO KNOWN DRUG ALLERGIES. CODE STATUS: Full. DIET: Heart healthy. PENDING AT TIME OF DISCHARGE: Nothing. CONSULTATIONS: Dr. Neto Johnson, Cardiology. PROCEDURES: 11/21/[address] Neto Johnson. HOSPITAL COURSE: Patient presented to the hospital with chest pain, history of COPD, hypertension, distant history of smoking. Her EKG showed a sinus rhythm with Q-waves in inferior leads. Troponins were trended. They were unremarkable. She underwent a nuclear medicine stress test which showed a defect. Dr. Neto Johnson was consulted. She was taken to the rags laborer. The operative procedure included a PTCA over the midsection of the right coronary artery and then had a stent put in the obtuse marginal. Today she is asymptomatic, feeling well. Cardiorespiratory exam is normal. She is being discharged for followup with Dr. Johnson in one week. Follow up with her PCP in 3 to 7 days. Job ID: [id number]
[2020-11-22 10:27] VITALS: BP 149/95
--- NOTE | 2020-11-23 07:21 | EKG ---
Test Reason : Blood Pressure : / mmHG Vent. Rate : 074 BPM Atrial Rate : 074 BPM P-R Int : 172 ms QRS Dur : 080 ms QT Int : 406 ms P-R-T Axes : 079 -01 057 degrees QTc Int : 450 ms Normal sinus rhythm Inferior infarct (cited on or before 19-NOV-2020) Abnormal ECG When compared with ECG of 21-NOV-2020 14:12, No significant change was found Confirmed by DR. Rhonda HEMPHILL ([id number]) on 11/23/2020 7:21:08 AM Referred By: DES Confirmed By:DR. Rhonda HEMPHILL
== END 2020-11-22 11:34 | disposition home or self-care (01) | DRG 247 ==
LOC: ERS 15:09 → 2NO 17:05 → OBSVTOIN 11-21 17:08 → 2NO 11-21 19:39
PROVIDERS: ADMIT Internal Medicine; ATTEND Internal Medicine
PROC: 027034Z Dilation of Coronary Artery, One Artery with Drug-eluting Intraluminal Device, Percutaneous Approach (ICD-10-PCS; principal; 2020-11-21)
PROC: 02703ZZ Dilation of Coronary Artery, One Artery, Percutaneous Approach (ICD-10-PCS; 2020-11-21)
PROC: 4A023N7 Measurement of Cardiac Sampling and Pressure, Left Heart, Percutaneous Approach (ICD-10-PCS; 2020-11-21)
PROC: B2111ZZ Fluoroscopy of Multiple Coronary Arteries using Low Osmolar Contrast (ICD-10-PCS; 2020-11-21)
DX: I25.10 Atherosclerotic heart disease of native coronary artery without angina pectoris (principal); E87.1 Hypo-osmolality and hyponatremia; Z23 Encounter for immunization; Z20.822 Contact with and (suspected) exposure to COVID-19; I10 Essential (primary) hypertension; I16.0 Hypertensive urgency; J44.9 Chronic obstructive pulmonary disease, unspecified; Z98.49 Cataract extraction status, unspecified eye; Z87.891 Personal history of nicotine dependence; Z90.49 Acquired absence of other specified parts of digestive tract; Z90.710 Acquired absence of both cervix and uterus
CPT/HCPCS: 0240U; 36415; 71046; 76942; 78452; 80048; 80053; 80061; 82436; 83690; 83930; 83935; 84133; 84300; 84484; 85025; 85347; 85379; 90471; 90662; 90732; 92920; 92928; 93005; 93010; 93017; 93306; 93458; 93798; 94640; 94760; 96372; 96374; 96375; 96376; 99152; 99153; A9500; C1769; C1874; C9600; G0008; G0009; G0378; J0360; J1644; J1650; J2060; J2250; J2270; J2405; J2785; J3010; J7620; Q9967

== ENCOUNTER 2021-11-07 07:01 | Emergency (ER) | payer BC ==
[2021-11-07] MEDS ORDERED: methylPREDNISolone Sod Succ/PF 125 MG/2 ML VIAL ONE (07:37)
[2021-11-07] MEDS ORDERED: Ondansetron PF 4 MG/2 ML Vial ONE (07:37)
[2021-11-07 07:43] LABS: #Lymphocytes 0.6 thou/uL (1.20-3.40); #Monocytes 0.6 thou/uL (0.11-0.59); #Neutrophils 3.3 thou/uL (1.40-6.50); %Basophils 0.5 % (0.0-1.0); %Lymphocytes 13.9 % (21.0-51.0); %Monocytes 13.7 % (0.0-10.0); %Neutrophils 71.9 % (42.0-75.0); Hemoglobin 13.1 g/dL (12.0-16.0); Mean Corpuscular HGB CONC 34.3 g/dL (32.0-36.0); Mean Corpuscular Hemoglobin 32.8 pg (27.0-31.0); Mean Corpuscular Volume 95.7 fL (78.0-98.0); Mean Platelet Volume 6.4 fL (7.4-10.4); Platelet Count 354 thou/uL (130-400); RBC Distribution Width 11.1 % (11.5-14.5); Red Blood Cell (RBC) Count 3.98 mill/uL (4.20-5.40); White Blood Cell (WBC) Count 4.6 thou/uL (4.8-10.8)
[2021-11-07] MEDS ORDERED: Albuterol 200 PUFF (6.7GM INHALER) ONE (08:21)
[2021-11-07 08:22] LABS: ALT (SGPT) 13 U/L (8-55); AST (SGOT) 15 U/L (5-34); Albumin 4.1 g/dL (3.4-4.8); Alkaline Phosphatase 73 U/L (40-110); Anion Gap 12 mmol/L (10-20); BUN (Urea Nitrogen) 4 mg/dL (9.8-20.1); Bilirubin, Total 0.3 mg/dL (0.2-1.2); Calc. Creatinine Clearance 0 mL/min (70-130); Carbon Dioxide 28 mmol/L (23-31); Chloride 93 mmol/L (98-107); Globulin 2.4 g/dL (2.4-3.5); Glucose 106 mg/dL (80-115); Potassium 3.9 mmol/L (3.5-5.1); Protein, Total 6.5 g/dL (5.8-8.1); Sodium 129 mmol/L (136-145)
[2021-11-07 17:22] LABS: SARS-CoV-2 PCR by NAA DETECTED (NotDetected)
== END 2021-11-07 08:37 | disposition home or self-care (01) ==
LOC: ERS 07:01
DX: U07.1 COVID-19 (principal); J44.1 Chronic obstructive pulmonary disease with (acute) exacerbation; I10 Essential (primary) hypertension; I49.9 Cardiac arrhythmia, unspecified; F17.220 Nicotine dependence, chewing tobacco, uncomplicated; Z79.899 Other long term (current) drug therapy
CPT/HCPCS: 71045; 80053; 84484; 85025; 93005; 94664; 96374; 96375; J2405; J2930; U0003; U0005

== ENCOUNTER 2022-05-27 17:46 | Emergency (ER) | payer BC ==
[2022-05-27 18:16] LABS: #Basophils 0.1 thou/uL (0.0-0.2); #Eosinphils 0.3 thou/uL (0.0-0.7); #Lymphocytes 1.8 thou/uL (1.20-3.40); #Monocytes 0.9 thou/uL (0.11-0.59); %Basophils 0.7 % (0.0-1.0); %Eosinophils 1.7 % (0.0-10.0); %Monocytes 5.9 % (0.0-10.0); %Neutrophils 79.7 % (42.0-75.0); Hemoglobin 14.8 g/dL (12.0-16.0); Mean Corpuscular HGB CONC 32.6 g/dL (32.0-36.0); Mean Corpuscular Hemoglobin 32.1 pg (27.0-31.0); Mean Corpuscular Volume 98.7 fL (78.0-98.0); Mean Platelet Volume 6.3 fL (7.4-10.4); Platelet Count 460 thou/uL (130-400); RBC Distribution Width 11.2 % (11.5-14.5); White Blood Cell (WBC) Count 15.1 thou/uL (4.8-10.8)
[2022-05-27 18:39] LABS: ALT (SGPT) 19 U/L (8-55); AST (SGOT) 22 U/L (5-34); Albumin 4.6 g/dL (3.4-4.8); Alkaline Phosphatase 82 U/L (40-110); Anion Gap 14 mmol/L (10-20); BUN (Urea Nitrogen) 7 mg/dL (9.8-20.1); Bilirubin, Total 0.7 mg/dL (0.2-1.2); Calc. Creatinine Clearance 0 mL/min (70-130); Calcium 9.7 mg/dL (7.8-10.44); Carbon Dioxide 27 mmol/L (23-31); Chloride 94 mmol/L (98-107); Estimated GFR 88; Globulin 2.7 g/dL (2.4-3.5); Glucose 107 mg/dL (80-115); Potassium 4.2 mmol/L (3.5-5.1); Protein, Total 7.3 g/dL (5.8-8.1); Sodium 131 mmol/L (136-145)
== END 2022-05-27 20:20 | disposition home or self-care (01) ==
LOC: ERS 17:46
DX: R07.89 Other chest pain (principal); J44.1 Chronic obstructive pulmonary disease with (acute) exacerbation; M25.511 Pain in right shoulder; I10 Essential (primary) hypertension; I49.9 Cardiac arrhythmia, unspecified; F17.220 Nicotine dependence, chewing tobacco, uncomplicated; Z79.899 Other long term (current) drug therapy
CPT/HCPCS: 36415; 71045; 80053; 84484; 85025; 93005

== ENCOUNTER 2023-05-05 18:23 | Observation (INO) | payer BC ==
[~2023-05-05 18:23] MED LIST: Iopamidol-370 76% 500 ML MDV (1 ML CHARGE) ONE
[2023-05-05] MEDS ORDERED: Ondansetron PF 4 MG/2 ML Vial ONE ×2 (18:35→23:48)
[2023-05-05 18:55] LABS: #Basophils 0.1 thou/uL (0.0-0.2); #Eosinphils 0.2 thou/uL (0.0-0.7); #Monocytes 0.7 thou/uL (0.11-0.59); #Neutrophils 8.7 thou/uL (1.40-6.50); %Basophils 0.7 % (0.0-1.0); %Lymphocytes 12.1 % (21.0-51.0); %Monocytes 6.5 % (0.0-10.0); %Neutrophils 78.4 % (42.0-75.0); Hemoglobin 13.9 g/dL (12.0-16.0); Mean Corpuscular HGB CONC 32.7 g/dL (32.0-36.0); Mean Corpuscular Hemoglobin 31.7 pg (27.0-31.0); Mean Platelet Volume 8.7 fL (7.4-10.4); Platelet Count 328 10x3/uL (130-400); RBC Distribution Width 12.5 % (11.5-14.5); Red Blood Cell (RBC) Count 4.38 mill/uL (4.20-5.40); White Blood Cell (WBC) Count 11.1 10x3/uL (4.8-10.8)
[2023-05-05 19:19] LABS: Calcium 9.6 mg/dL (7.8-10.44)
[2023-05-05 19:23] LABS: ALT (SGPT) 16 U/L (8-55); AST (SGOT) 15 U/L (5-34); Albumin 4.3 g/dL (3.4-4.8); Alkaline Phosphatase 62 U/L (40-110); Anion Gap 13 mmol/L (10-20); BUN (Urea Nitrogen) 7 mg/dL (9.8-20.1); Bilirubin, Total 0.3 mg/dL (0.2-1.2); Calc. Creatinine Clearance 0 mL/min (70-130); Carbon Dioxide 27 mmol/L (23-31); Chloride 98 mmol/L (98-107); Estimated GFR 84; Globulin 2.4 g/dL (2.4-3.5); Glucose 108 mg/dL (80-115); Lipase 36 U/L (8-78); Protein, Total 6.7 g/dL (5.8-8.1); Sodium 134 mmol/L (136-145)
[2023-05-05] MEDS ORDERED: Nitroglycerin 0.4 MG TAB 1 EACH ONE (21:52)
[2023-05-05] MEDS ORDERED: methylPREDNISolone Sod Succ/PF 125 MG/2 ML VIAL ONE (21:52)
[2023-05-05] MEDS ORDERED: Ipratropium/Albuterol 3 ML NEB ONE (22:02)
[2023-05-05 22:24] LABS: Bilirubin Negative (Negative); Blood, Urine Negative (Negative); CAUTI Indications for Culture Pelvic or flank pain; Clarity Clear (Clear); Glucose, Urine (Dipstick) Normal (Negative); Ketone, Urine Trace mg/dL (Negative); Leukocyte Negative Leu/uL (Negative); Mucous/LPF 1+ LPF (<2+); Nitrite Negative (Negative); Protein, Urine (Dipstick) 10 mg/dL (Neg-Trace); Specific Gravity, Urine 1.021 (1.002-1.036); Squamous Epithelial 0-3 HPF (0-3); Urobilinogen Normal mg/dL (Less than 2); WBC/HPF 0-3 HPF (0-3); pH, Urine 6.5 (5.0-9.0)
[2023-05-05 22:35] LABS: Bacteria/HPF Rare-Few HPF (None Seen); Urine Culture Reflex No No
[2023-05-05] MEDS ORDERED: Morphine 4 MG/ML VIAL ONE (23:48)
[2023-05-06 00:38] LABS: #Basophils 0.1 thou/uL (0.0-0.2); #Eosinphils 0.1 thou/uL (0.0-0.7); #Monocytes 0.2 thou/uL (0.11-0.59); #Neutrophils 9.5 thou/uL (1.40-6.50); %Basophils 0.5 % (0.0-1.0); %Eosinophils 0.5 % (0.0-10.0); %Lymphocytes 6.2 % (21.0-51.0); %Monocytes 1.7 % (0.0-10.0); %Neutrophils 90.7 % (42.0-75.0); Hemoglobin 13.4 g/dL (12.0-16.0); Mean Corpuscular HGB CONC 33.2 g/dL (32.0-36.0); Mean Corpuscular Hemoglobin 31.3 pg (27.0-31.0); Mean Corpuscular Volume 94.4 fl (78.0-98.0); Platelet Count 314 10x3/uL (130-400); RBC Distribution Width 12.3 % (11.5-14.5); Red Blood Cell (RBC) Count 4.28 mill/uL (4.20-5.40); White Blood Cell (WBC) Count 10.4 10x3/uL (4.8-10.8)
[2023-05-06 00:41] VITALS: BMI 24.5
[2023-05-06 01:00] LABS: Anion Gap 15 mmol/L (10-20); BUN (Urea Nitrogen) 7 mg/dL (9.8-20.1); Calc. Creatinine Clearance 78 mL/min (70-130); Calcium 9.1 mg/dL (7.8-10.44); Carbon Dioxide 22 mmol/L (23-31); Chloride 98 mmol/L (98-107); Estimated GFR 92; Glucose 126 mg/dL (80-115); Potassium 4.4 mmol/L (3.5-5.1); Sodium 131 mmol/L (136-145)
[2023-05-06 01:06] LABS: Troponin I Less than 0.010 ng/mL (< 0.028)
[2023-05-06 03:35] LABS: Troponin I Less than 0.010 ng/mL (< 0.028)
[2023-05-06 03:57] LABS: Cardiac Risk 3.4 (Less than 4.5)
[2023-05-06] MEDS ORDERED: Aspirin 325 mg Enteric Coated Tablet PO SCH (09:00)
[2023-05-06] MEDS ORDERED: Aspirin 325 MG TAB ONE (09:19)
[2023-05-06] MEDS ORDERED: Albuterol 200 PUFF (6.7GM INHALER) INH PRN (12:05)
[2023-05-06] MEDS ORDERED: Ipratropium/Albuterol 3 ML NEB ONE (13:36)
[2023-05-06 14:12] VITALS: BP 134/79; TEMP 98.2
[2023-05-06] MEDS ORDERED: Ipratropium/Albuterol 3 ML NEB NEB SCH (14:30)
[2023-05-06] MEDS ORDERED: Carvedilol 3.125 MG TAB PO SCH (17:00)
[2023-05-06] MEDS ORDERED: Carvedilol 6.25 MG TAB PO SCH (17:00)
[2023-05-06] MEDS ORDERED: traZODone HCl 150 MG TAB PO SCH (21:00)
[2023-05-07] MEDS ORDERED: predniSONE 50 MG TAB PO SCH (08:00)
[2023-05-07] MEDS ORDERED: Aspirin Chewable 81 MG TAB PO SCH (09:00)
[2023-05-07] MEDS ORDERED: Non-Formulary Item 1 EACH (Lisinopril [Lisinopril] 40 MG Tablet) PO SCH (09:00)
[2023-05-07] MEDS ORDERED: Lisinopril 20 MG TAB PO SCH (09:00)
[2023-05-07] MEDS ORDERED: Atorvastatin Calcium 40 MG TAB PO SCH (09:00)
[2023-05-07] MEDS ORDERED: Clopidogrel Bisulfate 75 MG TAB PO SCH (09:00)
== END 2023-05-06 14:20 | disposition home or self-care (01) ==
LOC: ERS 18:23 → ERHOLD 23:16
PROVIDERS: ADMIT Hospitalist; ATTEND Internal Medicine
DX: R07.9 Chest pain, unspecified (principal); I25.10 Atherosclerotic heart disease of native coronary artery without angina pectoris; J44.9 Chronic obstructive pulmonary disease, unspecified; Z79.82 Long term (current) use of aspirin; Z79.02 Long term (current) use of antithrombotics/antiplatelets; Z79.899 Other long term (current) drug therapy
CPT/HCPCS: 36415; 71045; 71275; 80053; 80061; 81001; 83690; 84484; 85025; 93005; 94640; 94760; 96372; 96374; 96375; G0378; J1650; J2270; J2405; J2930; J7620; Q9967

== ENCOUNTER 2023-06-01 15:13 | Emergency (ER) | payer BC ==
[2023-06-01] MEDS ORDERED: Aspirin Chewable 81 MG TAB ONE (16:06)
[2023-06-01] MEDS ORDERED: cefTRIAXone (ROCEPHIN) 2 GM VIAL ONE (16:07)
[2023-06-01] MEDS ORDERED: Azithromycin 500 MG VIAL ONE (16:07)
[2023-06-01] MEDS ORDERED: predniSONE 20 MG TAB ONE (16:08)
[2023-06-01] MEDS ORDERED: Ipratropium/Albuterol 3 ML NEB ONE ×2 (16:10→17:39)
[2023-06-01 16:15] LABS: #Basophils 0.1 thou/uL (0.0-0.2); #Eosinphils 0.3 thou/uL (0.0-0.7); #Monocytes 1.3 thou/uL (0.11-0.59); %Basophils 0.4 % (0.0-1.0); %Eosinophils 1.8 % (0.0-10.0); %Lymphocytes 11.1 % (21.0-51.0); %Monocytes 9.2 % (0.0-10.0); %Neutrophils 77.2 % (42.0-75.0); Hematocrit 39.9 % (36.0-47.0); Hemoglobin 13.1 g/dL (12.0-16.0); Mean Corpuscular HGB CONC 32.8 g/dL (32.0-36.0); Mean Corpuscular Hemoglobin 31.5 pg (27.0-31.0); Mean Corpuscular Volume 95.9 fl (78.0-98.0); Mean Platelet Volume 8.8 fL (7.4-10.4); Platelet Count 426 10x3/uL (130-400); Red Blood Cell (RBC) Count 4.16 mill/uL (4.20-5.40); White Blood Cell (WBC) Count 14.3 10x3/uL (4.8-10.8)
[2023-06-01 16:46] LABS: ALT (SGPT) 16 U/L (8-55); AST (SGOT) 24 U/L (5-34); Albumin 4.2 g/dL (3.4-4.8); Alkaline Phosphatase 120 U/L (40-110); Anion Gap 16 mmol/L (10-20); BUN (Urea Nitrogen) Less than 4 mg/dL (9.8-20.1); Bilirubin, Total 0.5 mg/dL (0.2-1.2); Calc. Creatinine Clearance 0 mL/min (70-130); Calcium 9.8 mg/dL (7.8-10.44); Carbon Dioxide 24 mmol/L (23-31); Chloride 100 mmol/L (98-107); Estimated GFR 95; Globulin 3.3 g/dL (2.4-3.5); Glucose 109 mg/dL (80-115); Potassium 3.5 mmol/L (3.5-5.1); Protein, Total 7.5 g/dL (5.8-8.1); Sodium 136 mmol/L (136-145)
== END 2023-06-01 18:26 | disposition home or self-care (01) ==
LOC: ERS 15:13
DX: J18.1 Lobar pneumonia, unspecified organism (principal); J44.1 Chronic obstructive pulmonary disease with (acute) exacerbation; I10 Essential (primary) hypertension; F17.220 Nicotine dependence, chewing tobacco, uncomplicated; Z79.899 Other long term (current) drug therapy
CPT/HCPCS: 36415; 71045; 80053; 83605; 83880; 84484; 85025; 87040; 93005; 96365; 96367; J0456; J0696; J7512; J7620

== ENCOUNTER 2023-06-03 21:18 | Inpatient (IN) | payer BC ==
[2023-06-03] MEDS ORDERED: cefTRIAXone (ROCEPHIN) 1 GM VIAL ONE (22:39)
[2023-06-03] MEDS ORDERED: Azithromycin 500 MG VIAL ONE (22:39)
[2023-06-03 22:52] LABS: #Basophils 0.1 thou/uL (0.0-0.2); #Monocytes 1.1 thou/uL (0.11-0.59); #Neutrophils 11.4 thou/uL (1.40-6.50); %Basophils 0.5 % (0.0-1.0); %Lymphocytes 8.6 % (21.0-51.0); %Monocytes 7.8 % (0.0-10.0); Hematocrit 38.9 % (36.0-47.0); Mean Corpuscular HGB CONC 33.4 g/dL (32.0-36.0); Mean Corpuscular Hemoglobin 31.6 pg (27.0-31.0); Mean Corpuscular Volume 94.6 fl (78.0-98.0); Mean Platelet Volume 8.8 fL (7.4-10.4); Platelet Count 506 10x3/uL (130-400); Red Blood Cell (RBC) Count 4.11 mill/uL (4.20-5.40); White Blood Cell (WBC) Count 14.4 10x3/uL (4.8-10.8)
[2023-06-03 23:18] LABS: ALT (SGPT) 18 U/L (8-55); AST (SGOT) 17 U/L (5-34); Alkaline Phosphatase 77 U/L (40-110); Anion Gap 12 mmol/L (10-20); BUN (Urea Nitrogen) 7 mg/dL (9.8-20.1); Bilirubin, Total Less than 0.2 mg/dL (0.2-1.2); Calc. Creatinine Clearance 0 mL/min (70-130); Calcium 9.7 mg/dL (7.8-10.44); Carbon Dioxide 28 mmol/L (23-31); Chloride 98 mmol/L (98-107); Estimated GFR 95; Globulin 3.2 g/dL (2.4-3.5); Glucose 107 mg/dL (80-115); Potassium 4.3 mmol/L (3.5-5.1); Protein, Total 7.2 g/dL (5.8-8.1); Sodium 134 mmol/L (136-145)
[2023-06-04] MEDS ORDERED: Ondansetron ODT 4 MG TAB SL PRN (02:00)
[2023-06-04] MEDS ORDERED: Ondansetron PF 4 MG/2 ML Vial IVP PRN (02:00)
[2023-06-04] MEDS ORDERED: Acetaminophen 325 MG TAB PO PRN (02:00)
[2023-06-04 02:04] VITALS: BMI 24.5
[2023-06-04] MEDS ORDERED: Acetaminophen 650 MG Suppository PR PRN (03:56)
[2023-06-04] MEDS ORDERED: Furosemide 40 MG/4 ML VIAL SLOW IVP SCH (04:00)
[2023-06-04 05:04] LABS: #Basophils 0.1 thou/uL (0.0-0.2); #Eosinphils 0.1 thou/uL (0.0-0.7); #Monocytes 1.7 thou/uL (0.11-0.59); #Neutrophils 10.5 thou/uL (1.40-6.50); %Basophils 0.5 % (0.0-1.0); %Eosinophils 0.5 % (0.0-10.0); %Lymphocytes 16.2 % (21.0-51.0); %Monocytes 10.8 % (0.0-10.0); %Neutrophils 68.7 % (42.0-75.0); Hematocrit 40.6 % (36.0-47.0); Hemoglobin 13.1 g/dL (12.0-16.0); Mean Corpuscular HGB CONC 32.3 g/dL (32.0-36.0); Mean Corpuscular Hemoglobin 31.6 pg (27.0-31.0); Mean Platelet Volume 9.8 fL (7.4-10.4); Platelet Count 493 10x3/uL (130-400); Red Blood Cell (RBC) Count 4.15 mill/uL (4.20-5.40); White Blood Cell (WBC) Count 15.3 10x3/uL (4.8-10.8)
[2023-06-04 05:06] LABS: Mean Corpuscular Volume 97.8 fl (78.0-98.0)
[2023-06-04 05:34] LABS: Anion Gap 12 mmol/L (10-20); BUN (Urea Nitrogen) 7 mg/dL (9.8-20.1); Calc. Creatinine Clearance 82 mL/min (70-130); Calcium 9.6 mg/dL (7.8-10.44); Carbon Dioxide 28 mmol/L (23-31); Chloride 101 mmol/L (98-107); Estimated GFR 95; Glucose 89 mg/dL (80-115); Potassium 4.3 mmol/L (3.5-5.1); Sodium 137 mmol/L (136-145)
[2023-06-04] MEDS: Ipratropium/Albuterol 3 ML NEB NEB PRN ×2 (05:53→21:06)
[2023-06-04] MEDS: Aspirin Chewable 81 MG TAB PO SCH (08:34)
[2023-06-04] MEDS: Lisinopril 20 MG TAB PO SCH (08:35)
[2023-06-04] MEDS: Clopidogrel Bisulfate 75 MG TAB PO SCH (08:35)
[2023-06-04] MEDS: Carvedilol 6.25 MG TAB PO SCH ×2 (08:35→18:04)
[2023-06-04] MEDS ORDERED: predniSONE 50 MG TAB PO SCH (10:15)
[2023-06-04] MEDS: cefTRIAXone\\ROCEPHIN 1 GM in Sodium Chloride 0.9% 100 ML IVPB SCH (20:55)
[2023-06-04] MEDS: Azithromycin 500 MG in Sodium Chloride 0.9% 250 ML 250 ML IVPB SCH (20:56)
[2023-06-04] MEDS: Atorvastatin Calcium 40 MG TAB PO SCH (20:56)
[2023-06-04] MEDS: traZODone HCl 150 MG TAB PO SCH (20:56)
[2023-06-05] MEDS: Ipratropium/Albuterol 3 ML NEB NEB PRN ×6 (03:06→22:29)
[2023-06-05 05:59] LABS: Cardiac Risk 4.1 (Less than 4.5)
[2023-06-05] MEDS: Clopidogrel Bisulfate 75 MG TAB PO SCH (10:05)
[2023-06-05] MEDS: Carvedilol 6.25 MG TAB PO SCH ×2 (10:05→18:34)
[2023-06-05] MEDS: Lisinopril 20 MG TAB PO SCH (10:05)
[2023-06-05] MEDS: Aspirin Chewable 81 MG TAB PO SCH (10:05)
[2023-06-05] MEDS: predniSONE 50 MG TAB PO SCH (10:05)
[2023-06-05] MEDS: traZODone HCl 150 MG TAB PO SCH (20:18)
[2023-06-05] MEDS: Atorvastatin Calcium 40 MG TAB PO SCH (20:18)
[2023-06-05] MEDS: cefTRIAXone\\ROCEPHIN 1 GM in Sodium Chloride 0.9% 100 ML IVPB SCH (20:18)
[2023-06-05] MEDS: Azithromycin 500 MG in Sodium Chloride 0.9% 250 ML 250 ML IVPB SCH (21:08)
[2023-06-06] MEDS: Ipratropium/Albuterol 3 ML NEB NEB PRN ×3 (02:15→10:15)
[2023-06-06] MEDS: Lisinopril 20 MG TAB PO SCH (09:02)
[2023-06-06] MEDS: Carvedilol 6.25 MG TAB PO SCH ×2 (09:03→18:00)
[2023-06-06] MEDS: Clopidogrel Bisulfate 75 MG TAB PO SCH (09:03)
[2023-06-06] MEDS: Aspirin Chewable 81 MG TAB PO SCH (09:03)
[2023-06-06] MEDS: predniSONE 50 MG TAB PO SCH (09:03)
[2023-06-06 12:05] LABS: #Basophils 0.1 thou/uL (0.0-0.2); #Eosinphils 0.1 thou/uL (0.0-0.7); #Monocytes 0.7 thou/uL (0.11-0.59); #Neutrophils 15.5 thou/uL (1.40-6.50); %Basophils 0.4 % (0.0-1.0); %Eosinophils 0.7 % (0.0-10.0); %Lymphocytes 8.7 % (21.0-51.0); %Monocytes 3.8 % (0.0-10.0); %Neutrophils 82.7 % (42.0-75.0); Hematocrit 41.6 % (36.0-47.0); Hemoglobin 13.5 g/dL (12.0-16.0); Mean Corpuscular HGB CONC 32.5 g/dL (32.0-36.0); Mean Corpuscular Hemoglobin 31.8 pg (27.0-31.0); Mean Corpuscular Volume 98.1 fl (78.0-98.0); Mean Platelet Volume 8.4 fL (7.4-10.4); Platelet Count 519 10x3/uL (130-400); RBC Distribution Width 12.4 % (11.5-14.5); Red Blood Cell (RBC) Count 4.24 mill/uL (4.20-5.40); White Blood Cell (WBC) Count 18.8 10x3/uL (4.8-10.8)
[2023-06-06 12:26] LABS: Anion Gap 15 mmol/L (10-20); BUN (Urea Nitrogen) 13 mg/dL (9.8-20.1); Calc. Creatinine Clearance 77 mL/min (70-130); Calcium 9.9 mg/dL (7.8-10.44); Carbon Dioxide 26 mmol/L (23-31); Chloride 101 mmol/L (98-107); Estimated GFR 90; Glucose 98 mg/dL (80-115); Magnesium 2.2 mg/dL (1.6-2.6); Potassium 4.6 mmol/L (3.5-5.1); Sodium 137 mmol/L (136-145)
[2023-06-06] MEDS: Ipratropium/Albuterol 3 ML NEB NEB SCH ×3 (14:33→21:54)
[2023-06-06] MEDS: Atorvastatin Calcium 40 MG TAB PO SCH (20:37)
[2023-06-06] MEDS: traZODone HCl 150 MG TAB PO SCH (20:37)
[2023-06-06] MEDS: cefTRIAXone\\ROCEPHIN 1 GM in Sodium Chloride 0.9% 100 ML IVPB SCH (20:37)
[2023-06-06] MEDS: Azithromycin 500 MG in Sodium Chloride 0.9% 250 ML 250 ML IVPB SCH (21:38)
[2023-06-07] MEDS: Ipratropium/Albuterol 3 ML NEB NEB SCH ×3 (02:04→10:39)
[2023-06-07 07:41] VITALS: BP 173/82; TEMP 97.9
[2023-06-07] MEDS: Carvedilol 6.25 MG TAB PO SCH (08:41)
[2023-06-07] MEDS: predniSONE 50 MG TAB PO SCH (08:41)
[2023-06-07] MEDS: Aspirin Chewable 81 MG TAB PO SCH (08:42)
[2023-06-07] MEDS: Clopidogrel Bisulfate 75 MG TAB PO SCH (08:42)
[2023-06-07] MEDS: Lisinopril 20 MG TAB PO SCH (08:42)
== END 2023-06-07 11:10 | disposition home or self-care (01) | DRG 871 ==
LOC: ERS 21:18 → SURG B 23:18 → OBSVTOIN 06-04 12:34 → 2NO 06-04 17:48
PROVIDERS: ADMIT Student in an Organized Health Care Education/Training Program; ATTEND Internal Medicine
DX: A41.9 Sepsis, unspecified organism (principal); I50.33 Acute on chronic diastolic (congestive) heart failure; J18.9 Pneumonia, unspecified organism; E87.1 Hypo-osmolality and hyponatremia; J44.1 Chronic obstructive pulmonary disease with (acute) exacerbation; I25.10 Atherosclerotic heart disease of native coronary artery without angina pectoris; E78.00 Pure hypercholesterolemia, unspecified; F41.9 Anxiety disorder, unspecified; F32.A Depression, unspecified; F17.220 Nicotine dependence, chewing tobacco, uncomplicated; I11.0 Hypertensive heart disease with heart failure; I08.1 Rheumatic disorders of both mitral and tricuspid valves; R00.1 Bradycardia, unspecified; R53.1 Weakness; Z79.51 Long term (current) use of inhaled steroids; I25.2 Old myocardial infarction; Z79.899 Other long term (current) drug therapy; Z90.49 Acquired absence of other specified parts of digestive tract; Z90.710 Acquired absence of both cervix and uterus; Z90.89 Acquired absence of other organs; Z91.198 Patient's noncompliance with other medical treatment and regimen for other reason; Z98.49 Cataract extraction status, unspecified eye; Z95.5 Presence of coronary angioplasty implant and graft; Z79.82 Long term (current) use of aspirin; Z79.02 Long term (current) use of antithrombotics/antiplatelets; Z79.52 Long term (current) use of systemic steroids; Z98.41 Cataract extraction status, right eye; Z98.42 Cataract extraction status, left eye; Z87.01 Personal history of pneumonia (recurrent); Z82.49 Family history of ischemic heart disease and other diseases of the circulatory system; Z83.3 Family history of diabetes mellitus; Z80.9 Family history of malignant neoplasm, unspecified
CPT/HCPCS: 36415; 71045; 80048; 80053; 80061; 83605; 83735; 83880; 84145; 84484; 85025; 86140; 87040; 93005; 93306; 94640; 96365; 96367; 96375; G0378; J0456; J0696; J1940; J3490; J7050; J7512; J7620

== ENCOUNTER 2024-10-22 10:30 | Outpatient (CLI) | payer MEDICARE | END 2024-10-22 10:31 | disposition home or self-care (01) | LOC: RAD 10:30 | PROVIDERS: ATTEND Internal Medicine Critical Care Medicine | DX: R06.00 Dyspnea, unspecified (principal); J98.4 Other disorders of lung | CPT/HCPCS: 71046 ==